=== PATIENT | female | born 1945 | race Caucasian/White ===

== ENCOUNTER 2021-03-23 14:06 | Emergency (ER) | payer MEDICARE ==
[~2021-03-23] VITALS: Ht 152.4 cm; Wt 52.2 kg
--- NOTE | 2021-03-23 14:20 | NUR ---
Patient brought in by [facility] for hip pain
--- NOTE | 2021-03-23 14:32 | NUR ---
Patient being taken to radiology department
[2021-03-23] MEDS ORDERED: PROPOFOL 200 MG/20 ML BOTTLE ONE (15:55)
[2021-03-23] MEDS ORDERED: FENTANYL CITRATE 100 MCG/2 ML AMPUL ONE (15:55)
--- NOTE | 2021-03-23 15:55 | NUR ---
A "time out" was performed for procedure per hospital protocol, please see time out sheet.
--- NOTE | 2021-03-23 16:00 | NUR ---
Moderate sedation for closed reduction of right hip. Pt signed consent for procedure after the ER physician spoke with the pt and her . ER physician, myself, Cris BERKOWITZ, Chance VENTURA and Jaskaran VENTURA at bedside. Please see written moderate sedation record.
[2021-03-23] MEDS ORDERED: PROPOFOL 200 MG/20 ML BOTTLE IV ONE (16:45)
[2021-03-23] MEDS ORDERED: FENTANYL CITRATE 100 MCG/2 ML AMPUL IV ONE (16:45)
--- NOTE | 2021-03-23 17:22 | NUR ---
Patient discharged to home in stable condition. Patient given knee immobilizer and instructed to only allow toe touch on right leg. No complaints of pain, no signs of distress noted, Written and verbal after care instructions given. assisting patient home, patient noted ambulating with walker. Patient verbalizes understanding of instructions. Stressed follow up or return to ER for worsening s/s.
[2021-03-23 18:19] VITALS: BP 141/80
== END 2021-03-23 17:22 | disposition home or self-care (01) ==
LOC: ER 14:06
DX: T84.020A Dislocation of internal right hip prosthesis, initial encounter (principal); G89.29 Other chronic pain; Z96.641 Presence of right artificial hip joint
CPT/HCPCS: 27265; 73502 ×2; 73630; 96374; 99152; 99285; J3010; A4663; G0500; J3490; J7030

== ENCOUNTER 2021-04-06 19:10 | Emergency (ER) | payer MEDICARE, BC ==
[~2021-04-06] VITALS: Ht 162.6 cm; Wt 52.2 kg
--- NOTE | 2021-04-06 19:15 | NUR ---
PT BIB [facility] FROM HOME C/O R HIP PAIN. PT STATES SHE WAS GARDENING AND BENDED DOWN AND FELT A SUDDEN RIGHT HIP PAIN. DENIES KO. NOTED WITH SKIN ABRASION ON BRIDGE OF NOSE. A/O X3, NO SOB OR LABORED BREATHING. AFEBRILE. CLEAR SPEECH, COMPLETE SENTENCES.
--- NOTE | 2021-04-06 19:16 | NUR ---
Dolly BECKWITH AT BEDSIDE, MSE IN PROGRESS.
[2021-04-06] MEDS ORDERED: IV NORMAL SALINE 500 ML BAG IV ONE (19:30)
[2021-04-06] MEDS ORDERED: ONDANSETRON 4 MG/2 ML VIAL IV ONE (19:30)
[2021-04-06] MEDS ORDERED: HYDROMORPHONE 1 MG/1 ML DISP.SYRIN IV ONE (19:30)
[2021-04-06] MEDS ORDERED: HYDROMORPHONE 1 MG/1 ML DISP.SYRIN ONE (19:31)
[2021-04-06] MEDS ORDERED: ONDANSETRON 4 MG/2 ML VIAL ONE (19:31)
--- NOTE | 2021-04-06 19:47 | NUR ---
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
[2021-04-06 19:53] LABS: HEMATOCRIT 38.2 % (31.2-41.9); MEAN CORPUSCULAR HEMOGLOBIN 32.4 uug (24.7-32.8); MEAN CORPUSCULAR VOLUME 95.8 fL (75.5-95.3); PLATELET COUNT (AUTO) 188 K/uL (179-408)
[2021-04-06 19:56] LABS: CREATININE 0.8 mg/dL (0.6-1.3); POTASSIUM 3.8 mmol/L (3.5-5.1)
[2021-04-06 20:02] LABS: BILIRUBIN,DIRECT 0.2 mg/dL (0.0-0.2); BILIRUBIN,TOTAL 0.6 mg/dL (0.2-1.0); TOTAL PROTEIN, SERUM 7.3 g/dL (6.4-8.2)
--- NOTE | 2021-04-06 20:30 | NUR ---
SPOKE WITH YAZ FROM [facility] AND FAXED OVER SUMMARY REPORT AND FACE SHEET. FAX#:[phone] [facility] #: [phone]
[2021-04-06] MEDS ORDERED: ETOMIDATE 20 MG/10 ML VIAL ONE (20:56)
--- NOTE | 2021-04-06 21:10 | NUR ---
XRAY AT BEDSIDE.
[2021-04-06] MEDS ORDERED: HYDR-4209 PO (21:29)
[2021-04-06] MEDS ORDERED: ETOMIDATE 20 MG/10 ML VIAL IV ONE ×2 (22:00)
[2021-04-06] MEDS ORDERED: TDAP DIPH,PERTUSS,TET VAC/PF 0.5 ML DISP.SYRIN IM ONE ×2 (22:15→22:17)
--- NOTE | 2021-04-06 22:38 | NUR ---
Patient does not wish to proceed with medical care recommended by Francisca Yang. Patient given information related to possible complications, up to and including , which could occur as a result of leaving the hospital at this time. Patient verbalizes understanding of risks involved due to leaving against medical advice. Patient has signed AMA form. A/O x4, no SOB or labored breathing, afebrile. No changes in LOC. Steady gait. Denies any pain/discomfort. Accompanied by .
[2021-04-06 22:43] VITALS: BP 144/83
== END 2021-04-06 22:25 | disposition left against medical advice (07) ==
LOC: ER 19:12
DX: T84.020A Dislocation of internal right hip prosthesis, initial encounter (principal); Z53.29 Procedure and treatment not carried out because of patient's decision for other reasons; Z96.641 Presence of right artificial hip joint
CPT/HCPCS: 27265; 36415; 71045; 72170 ×2; 73502; 80048; 80076; 85025; 85730; 87426; 90471; 90715; 93005; 96361; 96374; 96375; 99285; J1170; J2405; J3490; G0500; J7030